=== PATIENT | female | born 1945 | race Two or more races ===

== ENCOUNTER 2019-03-02 09:21 | Inpatient (IN) | payer MEDICARE ==
[~2019-03-02] VITALS: Ht 167.6 cm; Wt 45.4 kg
--- NOTE | 2019-03-02 09:32 | NUR ---
patient BIB daughter c/o r hip pain s/p fall in the bathroom. Breathing evenly and unlabored. connected to the monitor and pulse ox. kept comfortable, will continue to monitor accordingly.
[2019-03-02 09:53] LABS: BASOPHILS # (AUTO) 0.2 /CMM (0.0-0.2); BASOPHILS % (AUTO) 2.2 % (0.0-2.0); EOSINOPHILS % (AUTO) 0.7 % (0.0-6.0); HEMATOCRIT 37 % (33-45); HEMOGLOBIN 12.3 g/dL (11.5-14.8); LYMPHOCYTES # (AUTO) 0.5 /CMM (0.8-4.8); LYMPHOCYTES % (AUTO) 5.5 % (20.0-44.0); MEAN CORPUSCULAR HGB CONC 34 g/dl (31.0-36.0); MEAN CORPUSCULAR VOLUME 91 fL (82-100); MONOCYTES # (AUTO) 0.4 /CMM (0.1-1.30); MONOCYTES % (AUTO) 4.1 % (2.0-12.0); NEUTROPHILS # (AUTO) 8.4 /CMM (1.8-8.9); NEUTROPHILS % (AUTO) 87.5 % (43.0-81.0); PLATELET COUNT (AUTO) 199 /CMM (150-450); RED BLOOD CELL COUNT(AUTO) 4.02 MIL/uL (4.0-5.2); WHITE BLOOD COUNT (AUTO) 9.6 K/uL (4.3-11.0)
--- NOTE | 2019-03-02 09:55 | NUR ---
urine collected and sent to lab.
[2019-03-02 09:58] LABS: APPEARANCE,URINE Cloudy (CLEAR); BILIRUBIN,URINE MODERATE (NEGATIVE); BLOOD, URINE Moderate Ery/uL (NEGATIVE); COLOR,URINE Yellow (YELLOW); KETONES,URINE 15 (NEGATIVE); LEUKOCYTE ESTERASE ,URINE Large (NEGATIVE); NITRITE, URINE Negative (NEGATIVE); PROTEIN,URINE 100 mg/dl (NEGATIVE); UGLUCOSE Negative (NEGATIVE); UROBILINOGEN,URINE 0.2 EU/dL (0.2)
[2019-03-02 09:59] LABS: CALCIUM, SERUM 9.6 mg/dL (8.5-10.1); CARBON DIOXIDE 20 mmol/L (21-32); CHLORIDE 103 mmol/L (98-107); GLUCOSE 108 mg/dL (74-106); POTASSIUM 4.1 mmol/L (3.5-5.1); SODIUM SERUM 142 mmol/L (136-145); UREA NITROGEN, BLOOD 50 mg/dL (7-18)
[2019-03-02 10:05] LABS: ALANINE AMINOTRANSFERASE 17 U/L (12-78); ALBUMIN 3.7 g/dL (3.4-5.0); ALKALINE PHOSPHATASE 62 U/L (46-116); ASPARTATE AMINOTRANSFERASE 16 U/L (15-37); BILIRUBIN,DIRECT 0.1 mg/dL (0.0-0.2); BILIRUBIN,TOTAL 0.6 mg/dL (0.2-1.0)
[2019-03-02 10:05] LABS: BACTERIA,URINE Few /HPF (None Seen); RBC,URINE 20-50 /HPF (0-2); SQUAMOUS EPITHELIAL CELL,UR Moderate /HPF (None Seen); WBC,URINE 20-25 /HPF (0-3)
--- NOTE | 2019-03-02 10:26 | NUR ---
CALLED NURSING SUP FOR BED
[2019-03-02] MEDS ORDERED: CEFTRIAXONE 1GM BAG (ER ONLY) 50 ML IV ONE (10:29)
[2019-03-02] MEDS ORDERED: CEFTRIAXONE 1GM BAG (ER ONLY) 1 GM/50 ML PIGGYBACK IV ONE (10:30)
[2019-03-02] MEDS ORDERED: IV NS 0.9% 500 ML BAG IV ONE (10:30)
--- NOTE | 2019-03-02 10:36 | NUR ---
CALLED [facility] [phone] ANSWER. COURY TEXTED
--- NOTE | 2019-03-02 10:41 | NUR ---
ROOM 103
[2019-03-02] MEDS ORDERED: HYDR-4075 PO (10:56)
[2019-03-02] MEDS ORDERED: AMLO10TA4 PO (10:56)
[2019-03-02] MEDS ORDERED: Z GUARD REMEDY 2 OZ OINT TP PRN (11:00)
[2019-03-02] MEDS ORDERED: ACETAMINOPHEN 325 MG TABLET PO PRN (11:00)
[2019-03-02] MEDS ORDERED: MAGNESIUM HYDROXIDE 30 ML UDC PO PRN (11:00)
[2019-03-02] MEDS ORDERED: ONDANSETRON HCL/PF 4 MG/2 ML VIAL IVP PRN (11:00)
--- NOTE | 2019-03-02 11:00 | NUR ---
RN NOTE ER TRANSFERD PATIENT AT 12PM. RN VERBALIZED FIRST ROUND OF ANTIBIOTICS WAS GIVEN IN ER. SUKUMAR NURSE DID NOT GIVE.
[2019-03-02] MEDS ORDERED: LOSA100T31 PO (11:02)
[2019-03-02] MEDS ORDERED: METO-356 PO (11:02)
--- NOTE | 2019-03-02 11:18 | NUR ---
ORTHO REPAGED, MIXED LIVESTOCK FARMER, PAGED TO CALL BACK.
--- NOTE | 2019-03-02 11:50 | NUR ---
wheeled patient via gurney going to room 103 in no apparent distress. Julee at bedside to assume care.
[2019-03-02 12:00] VITALS: BP 158/63
--- NOTE | 2019-03-02 12:00 | NUR ---
EDITOR SCHOOL PHOTOGRAPH ASSESSMENT PATIENT TRANSFERED FROM THE ER DUE TO FALL AT HOME. TRANSFERED FROM ER. PATIETN ALERT AND ORITNED X3. DAUGHTER AT BEDISDE. IV PATENT AND INTACT. XRAY DONE TO RT HIP, VITALS WNL , BED IN LOW POSITION, CALL LGIHT WITHIN REACH. PAIN MEDICATION ORDERED PER MD. CONTINUE TO MONITOR.
[2019-03-02] MEDS: HYDROCODONE/APAP 10/325MG 1 EA TABLET PO PRN (12:04)
[2019-03-02] MEDS: MORPHINE SULFATE INJ 2 MG/ML DISP.SYRIN IV PRN (12:26)
[2019-03-02 13:00] VITALS: BP 158/63
[2019-03-02] MEDS: IV NS 0.9% 1,000 ML IV PRN (15:08)
[2019-03-02 16:00] VITALS: BP 125/55
[2019-03-02] MEDS: hydrALAZINE HCL 10 MG TABLET PO SCH (17:38)
[2019-03-02] MEDS: LOSARTAN POTASSIUM 50 MG TABLET PO SCH (17:40)
--- NOTE | 2019-03-02 19:30 | NUR ---
RN NOTES, PATIENT IN BED AWAKE, ALERT AND ORIENTED X3, ABLE TO VERBALIZED NEEDS, ANXIOUS AND AFRAID OF SURGERY, DAUGHTER AT BEDSIDE, ASSURANCE PROVIDED, IV ACCESS IN LEFT AC PATENT AND INTACT, INFUSING IVF WELL AND PATIENT TOLERATED WELL, BED IN LOW POSITION, CALL LIGHT WITHIN REACH, DRY AND CLEAN, RIGHT LEG IMMOBILIZED, BILATERAL 1/2 S/R OF BED UP, WILL CONTINUE TO MONITOR CLOSELY,
[2019-03-02 20:00] VITALS: BP 127/65
[2019-03-03] VITALS (13 sets, daily range): BP systolic 97–145; BP diastolic 52–68
[2019-03-03] MEDS: MORPHINE SULFATE INJ 2 MG/ML DISP.SYRIN IV PRN ×4 (02:28→23:04)
--- NOTE | 2019-03-03 04:33 | NUR ---
RN NOTES, ENDORSED PATIENT TO SIRISHA VILLALBA FOR CONTINUATION OF CARE, PATIENT IN BED AWAKE A/O, ANXIOUS AND BEING AWAKE ALL NIGHT, MORPHINE ADMINISTERED EARLIER FOR PAIN, BUT REFUSED MEDICATION FOR ANXIETY OR SLEEP, EDUCATION PROVIDED REGARDING SURGERY AT THE BEGINNING OF THE SHIFT AND INFORMED THAT SHE NEED TO BE NPO, PATIENT AWARE OF SURGERY, NPO SINCE MIDNIGHT, VERBALIZED UNDERSTANDING, AND CONSENT SIGNED.
--- NOTE | 2019-03-03 04:34 | NUR ---
MS RN NOTE PATIENT RECEIVED IN BED A/O X 3 ABLE TO VERBALIZE NEEDS. PATIENT ANXIOUS AND HASNT SLEPT ALL NIGHT. PATIENT REFUSES ANY MEDICATION TO AID IN REST AND ANXIETY. REASSURANCE PROVIDED AND SUPPORT GIVEN. PATIENT HAS LAC PATENT INTACT NO S/S OF INFILTRATION AND INFECTION. SAFETY PRECAUTIONS IN PLACE BED IN LOWEST LOCKED POSITION. PATIENT DENIES ANY PAIN AT THIS TIME. RIGHT LEG IMOBILIZED RN WILL CONTINUE TO MONITOR,.
[2019-03-03 06:00] LABS: BASOPHILS % (AUTO) 0.8 % (0.0-2.0); EOSINOPHILS % (AUTO) 1.7 % (0.0-6.0); HEMATOCRIT 28 % (33-45); HEMOGLOBIN 9.7 g/dL (11.5-14.8); LYMPHOCYTES % (AUTO) 18.7 % (20.0-44.0); MEAN CORPUSCULAR HGB CONC 34 g/dl (31.0-36.0); MEAN CORPUSCULAR VOLUME 88 fL (82-100); MONOCYTES # (AUTO) 0.5 /CMM (0.1-1.30); MONOCYTES % (AUTO) 9.8 % (2.0-12.0); NEUTROPHILS # (AUTO) 3.6 /CMM (1.8-8.9); PLATELET COUNT (AUTO) 151 /CMM (150-450); RED BLOOD CELL COUNT(AUTO) 3.17 MIL/uL (4.0-5.2); WHITE BLOOD COUNT (AUTO) 5.3 K/uL (4.3-11.0)
[2019-03-03 06:12] LABS: CALCIUM, SERUM 8.3 mg/dL (8.5-10.1); CARBON DIOXIDE 21 mmol/L (21-32); CHLORIDE 109 mmol/L (98-107); CREATININE 1.5 mg/dL (0.6-1.3); GLUCOSE 97 mg/dL (74-106); MAGNESIUM 1.8 mg/dL (1.8-2.4); PHOSPHORUS 3.4 mg/dL (2.5-4.9); SODIUM SERUM 141 mmol/L (136-145); UREA NITROGEN, BLOOD 47 mg/dL (7-18)
[2019-03-03 06:18] LABS: CHOLESTEROL 155 mg/dL (<200); HDL CHOLESTEROL 67 mg/dL (40-60); LDL 72 mg/dL (0-99); THYROID STIMULATING HORMONE 1.047 uIU/mL (0.358-3.74); TRIGLYCERIDES 51 mg/dL (30-150)
--- NOTE | 2019-03-03 06:44 | NUR ---
MS RN NOTE NO ACUTE CHANGES THROUGHOUT THE NIGHT. ALL CARE RENDERED. NO S/S OF DISTRESS. WILL ENDORSE POC TO AM SHIFT FOR ELENO.
[2019-03-03] MEDS: PANTOPRAZOLE 40 MG TABLET.DR PO SCH (07:30)
--- NOTE | 2019-03-03 07:30 | NUR ---
MS RN AM NOTES PATIENT IN BED A/O X 3 ABLE TO VERBALIZE NEEDS. ANXIOUS AND HASNT SLEPT ALL NIGHT PER MEMBERSHIP ADVISOR AND ALSO REFUSES MEDICATIONS FOR REST AND ANXIETY. REASSURANCE PROVIDED AND SUPPORT GIVEN. ON RA, NOT [place] DISTRESS, PAIN ON RIGHT HIP ON MOVEMENT OR CHANGE IN POSITION, LAC IV ACCESS WITH NS AT 100 ML/HR INFUSING WELL, SITE CLEAR. NPO FOR SCHEDULED HIP SURGERY BBY DR. MICHAEL, CONSENT AND CHECKLIST DONE. SAFETY PRECAUTIONS IN PLACE BED IN LOWEST LOCKED POSITION. CALL LIGHT WITHIN REACH. WILL CONTINUE TO MONITOR,.
[2019-03-03] MEDS ORDERED: BUPIVACAINE 0.5 % PF 150 MG/30 ML VIAL ONE ×2 (08:24→08:57)
[2019-03-03] MEDS ORDERED: BACITRACIN 50000 UNITS/VIAL ONE (08:24)
[2019-03-03] MEDS ORDERED: ANESTHESIA TRAY IN PYXIS 1 EA TRAY MC ONE (08:24)
[2019-03-03] MEDS: AMLODIPINE BESYLATE 10 MG TABLET PO SCH (08:28)
[2019-03-03] MEDS: LOSARTAN POTASSIUM 50 MG TABLET PO SCH (08:28)
[2019-03-03] MEDS: hydrALAZINE HCL 10 MG TABLET PO SCH ×2 (08:28→17:00)
[2019-03-03] MEDS: METOPROLOL SUCCINATE 25 MG TAB.SR.24H PO SCH (08:29)
[2019-03-03] MEDS: IV NS 0.9% 1,000 ML IV PRN (08:35)
--- NOTE | 2019-03-03 08:35 | NUR ---
MS RN NOTES PT PICKED UP FOR SURGERY
--- NOTE | 2019-03-03 08:50 | NUR ---
WOUND CARE CONSULT: PT OFF UNIT IN SURGERY AT THIS TIME. WILL SEE PT NEEDED.
[2019-03-03] MEDS ORDERED: FENTANYL PF 100MCG/2ML AMPUL ONE (08:56)
[2019-03-03] MEDS ORDERED: MIDAZOLAM HCL 2 MG/2ML VIAL ONE (08:57)
[2019-03-03] MEDS: CEFTRIAXONE 1 G in IV D5W 50 ML IV SCH (11:00)
[2019-03-03] MEDS ORDERED: BUPIVACAINE 0.25% 75 MG/30 ML VIAL ONE (11:21)
[2019-03-03] MEDS ORDERED: TRANEXAMIC ACID 3,000 MG in SODIUM CHLORIDE IRRIG SOLUTION 70 ML IR ONE (11:30)
[2019-03-03] MEDS ORDERED: ONDANSETRON HCL/PF 4 MG/2 ML VIAL ONE (11:45)
[2019-03-03] MEDS ORDERED: METOCLOPRAMIDE HCL 10 MG/2 ML VIAL ONE (12:02)
--- NOTE | 2019-03-03 12:28 | NUR ---
MS RN NOTES PT BACK FROM SURGERY. S/P RIGHT HIP HEMIARTHROPLASTY, DRESSING IN PLACE BY DR. MICHAEL, PT ALERT,C/O NAUSEA, DENIES PAIN, NOT IN ANY DISTRESS, IVF ONGOING, ADDUCTOR PILLOW IN PLACE. ALL POST OP ORDERS CARRIED OUT. WILL MONITOR. Addendum: 03/03/19 at 1442 by DIANA SHANNON RN ADDENDUM: MCKEON CATHETER IN PLACE DRAINING YELLOW CLEAR URINE. ADEQUATE AMOUNT.
[2019-03-03] MEDS: HYDROCODONE/APAP 10/325MG 1 EA TABLET PO PRN ×2 (15:56→20:10)
--- NOTE | 2019-03-03 18:52 | NUR ---
MS RN CLOSING NOTES PATIENT RESTING IN BED A/O X 3 ABLE TO VERBALIZE NEEDS. A BIT ANXIOUS, REASSURANCE PROVIDED AND SUPPORT GIVEN. ON RA, NOT IN ANY DISTRESS, S/P RT HIP ARTHROPLASTY, TOLERABLE PAIN, ON MOVEMENT OR CHANGE IN POSITION, LAC IV ACCESS WITH LR AT 75 ML/HR INFUSING WELL, SITE CLEAR. REGULAR DIET. SAFETY PRECAUTIONS IN PLACE BED IN LOWEST LOCKED POSITION. CALL LIGHT WITHIN REACH. ALL NEEDS MET. NO OTHER SIGNIFICANT CHANGE IN CONDITION. WILL ENDORSE TO NEXT SHIFT FOR ELENO.
--- NOTE | 2019-03-03 19:27 | NUR ---
RN MS OPENING NOTES RECEIVED PT IN BED, AWAKE ALERT ORIENTED X4, BREATHING EVEN AND UNLABORED ON ROOM AIR, INCENTIVE SPIROMETER AT BED SIDE. REPORTS R HIP PAIN 04/15, WILL FOLLOW UP WITH ANALGESIA. IV ACCESS ON THE L AC 20G WITH NS @100ML/HR, F/C IN PLACE AND DRAINING. BED IN LOWEST LOCKED POSITION, CALL LIGHT WITHIN REACH AT ALL TIMES, WILL CONTINUE TO MONITOR FREQUENTLY
[2019-03-04] MEDS: HYDROCODONE/APAP 10/325MG 1 EA TABLET PO PRN ×2 (04:16→08:45)
[2019-03-04] MEDS: IV LR 1000 ML 1,000 ML IV PRN ×2 (04:22→22:41)
[2019-03-04 05:00] VITALS: BP 141/55
--- NOTE | 2019-03-04 06:01 | NUR ---
RN MS CLOSING NOTES PT REMAINS IN BED, AWAKE ALERT ORIENTED X4, BREATHING EVEN AND UNLABORED ON ROOM AIR, INCENTIVE SPIROMETER AT BED SIDE. NO PAIN OR DISCOMFORT AT THIS TIME. IV ACCESS ON THE L AC 20G WITH LR 75ML/HR, F/C IN PLACE AND DRAINING OUTPUT OF 350ML NO BM.. BED IN LOWEST LOCKED POSITION, CALL LIGHT WITHIN REACH AT ALL TIMES, WILL ENDORSE TO DAY NURSE FOR ELENO.
[2019-03-04] MEDS: ENOXAPARIN SODIUM 30 MG/0.3 ML DISP.SYRIN SQ SCH (06:21)
[2019-03-04] MEDS: PANTOPRAZOLE 40 MG TABLET.DR PO SCH ×2 (07:30→08:17)
--- NOTE | 2019-03-04 07:32 | NUR ---
MS RN CLOSING NOTES RECEIVED PATIENT RESTING IN BED A/O X 3 ABLE TO VERBALIZE NEEDS. ON RA, NO SOB OR ACUTE DISTRESS NOTED. S/P RT HIP ARTHROPLASTY. LAC IV ACCESS INTACT AND PATENT WITH LR AT 75 ML/HR INFUSING WELL. REGULAR DIET. SAFETY PRECAUTIONS IN PLACE BED IN LOWEST LOCKED POSITION. CALL LIGHT WITHIN REACH. WILL CONTINUE TO MONITOR.
[2019-03-04 08:00] VITALS: BP 130/68
[2019-03-04] MEDS: LOSARTAN POTASSIUM 50 MG TABLET PO SCH ×2 (08:17→09:00)
[2019-03-04] MEDS: hydrALAZINE HCL 10 MG TABLET PO SCH ×3 (08:18→17:00)
[2019-03-04] MEDS: METOPROLOL SUCCINATE 25 MG TAB.SR.24H PO SCH ×2 (08:19→09:00)
[2019-03-04] MEDS: AMLODIPINE BESYLATE 10 MG TABLET PO SCH ×2 (08:19→09:00)
[2019-03-04 08:27] LABS: CALCIUM, SERUM 8.3 mg/dL (8.5-10.1); CARBON DIOXIDE 23 mmol/L (21-32); CHLORIDE 105 mmol/L (98-107); CREATININE 1.5 mg/dL (0.6-1.3); GLUCOSE 118 mg/dL (74-106); POTASSIUM 4.2 mmol/L (3.5-5.1); SODIUM SERUM 137 mmol/L (136-145); UREA NITROGEN, BLOOD 29 mg/dL (7-18)
--- NOTE | 2019-03-04 08:46 | NUR ---
WOUND CARE CONSULT: PT PRESENTS WITH RT HIP SURGICAL DRESSING WHICH IS DRY AND INTACT. SKIN IS INTACT. PT NOTED TO HAVE MCKEON CATH. RECOMMENDATIONS MADE FOR SKIN PROTECTION. DISCUSSED WITH NURSING STAFF. WILL SEE PRN. PT ABLE TO ASSIST WITH TURNING AND REPOSITIONING IN BED. MD IN AGREEMENT WITH PLAN OF CARE. CURRENT MARIEL SCORE IS 15.
[2019-03-04 09:04] LABS: BASOPHILS # (AUTO) 0.1 /CMM (0.0-0.2); BASOPHILS % (AUTO) 0.5 % (0.0-2.0); EOSINOPHILS % (AUTO) 0.3 % (0.0-6.0); HEMATOCRIT 26 % (33-45); HEMOGLOBIN 8.7 g/dL (11.5-14.8); LYMPHOCYTES # (AUTO) 0.7 /CMM (0.8-4.8); LYMPHOCYTES % (AUTO) 9.7 % (20.0-44.0); MEAN CORPUSCULAR HGB CONC 34 g/dl (31.0-36.0); MEAN CORPUSCULAR VOLUME 89 fL (82-100); MONOCYTES # (AUTO) 0.7 /CMM (0.1-1.30); MONOCYTES % (AUTO) 9.4 % (2.0-12.0); NEUTROPHILS # (AUTO) 5.8 /CMM (1.8-8.9); NEUTROPHILS % (AUTO) 80.1 % (43.0-81.0); PLATELET COUNT (AUTO) 148 /CMM (150-450); WHITE BLOOD COUNT (AUTO) 7.2 K/uL (4.3-11.0)
[2019-03-04] MEDS: CEFTRIAXONE 1 G in IV D5W 50 ML IV SCH (11:02)
[2019-03-04 12:00] VITALS: BP 92/64
[2019-03-04] MEDS: HYDROCODONE/APAP 5/325MG 1 EACH TABLET PO PRN ×2 (14:16→14:17)
[2019-03-04 16:00] VITALS: BP 92/64
--- NOTE | 2019-03-04 16:23 | NUR ---
MS RN NOTE PATIENT MCKEON CATHETER REMOVED. 350CC CLEAR YELLOW URING PRESENT IN BAG. REMOVED W/O INCIDENT.
--- NOTE | 2019-03-04 19:10 | NUR ---
MS RN NOTES RECEIVED PT IN BED AWAKE AND ABLE TO MAKE NEEDS KNOWN. PT A/O X4. RESPIRATIONS EVEN AND UNLABORED WITH NO S/S OF ACUTE DISTRESS OR SOB NOTED. PT ON RA TOLERATING WELL. IV ACCESS ON THE LAC #20G WITH LR @75ML/HR. SAFETY MEASURES IN PLACE WITH BED IN LOWEST LOCKED POSITION WITH SIDE RAILS UP X2. CALL LIGHT WITHIN REACH. WILL CONTINUE TO MONITOR.
--- NOTE | 2019-03-04 20:02 | NUR ---
MS RN CLOSING NOTES PATIENT RESTING IN BED A/O X 3 ABLE TO VERBALIZE NEEDS. ON RA, NO SOB OR ACUTE DISTRESS NOTED. S/P RT HIP ARTHROPLASTY. LAC IV ACCESS INTACT AND PATENT WITH LR AT 75 ML/HR INFUSING WELL. REGULAR DIET. SAFETY PRECAUTIONS IN PLACE BED IN LOWEST LOCKED POSITION. CALL LIGHT WITHIN REACH. CARE ENDORSED TO ROLL CLEANER RN..
[2019-03-04] MEDS: MAG HYDROX/AL HYDROX/SIMETH 30 ML UDC PO PRN (20:51)
[2019-03-04 21:00] VITALS: BP 100/61
[2019-03-05] MEDS: MAG HYDROX/AL HYDROX/SIMETH 30 ML UDC PO PRN (03:08)
[2019-03-05 05:00] VITALS: BP 111/57
--- NOTE | 2019-03-05 07:21 | NUR ---
MS RN NOTES PT IN BED AWAKE AND ABLE TO MAKE NEEDS KNOWN. PT A/O X4. RESPIRATIONS EVEN AND UNLABORED WITH NO S/S OF ACUTE DISTRESS OR SOB NOTED THROUGHOUT SHIFT. PT ON RA TOLERATING WELL. IV ACCESS ON THE LAC #20G WITH LR @75ML/HR WITH NO S/S OF INFILTRATION OR REDNESS NOTED THROUGHOUT SHIFT. SAFETY MEASURES IN PLACE WITH BED IN LOWEST LOCKED POSITION WITH SIDE RAILS UP X2. CALL LIGHT WITHIN REACH. WILL ENDORSE TO ONCOMING NURSE FOR ELENO.
[2019-03-05] MEDS: PANTOPRAZOLE 40 MG TABLET.DR PO SCH ×2 (07:30→07:44)
[2019-03-05 08:00] VITALS: BP 124/68
[2019-03-05] MEDS: hydrALAZINE HCL 10 MG TABLET PO SCH (08:05)
[2019-03-05] MEDS: LOSARTAN POTASSIUM 50 MG TABLET PO SCH (08:06)
[2019-03-05] MEDS: AMLODIPINE BESYLATE 10 MG TABLET PO SCH (08:06)
[2019-03-05] MEDS: METOPROLOL SUCCINATE 25 MG TAB.SR.24H PO SCH (08:07)
--- NOTE | 2019-03-05 08:07 | NUR ---
MS RN OPENING NOTES PATIENT RECEIVED RESTING IN BED A/O X 3 ABLE TO VERBALIZE NEEDS. ON RA, NO SOB OR ACUTE DISTRESS NOTED. S/P RT HIP ARTHROPLASTY. ORTHOPEDIST BEDSIDE TODAY.. SURGICAL SITE PROGRESSING EXPECTED. LAC IV ACCESS INTACT AND PATENT. IV LR HELD OVERNIGHT D/T PATIENT BENDING ARM DURING SLEEP. SAFETY PRECAUTIONS IN PLACE BED IN LOWEST LOCKED POSITION. CALL LIGHT WITHIN REACH. WILL CONTINUE TO MONITOR.
--- NOTE | 2019-03-05 08:10 | NUR ---
MS GRIMM NOTE PATIENT REFUSED 0900 BP MEDICATIONS. BP 124/68, HR 93. Addendum: 03/05/19 at 0811 by FRANK SMITH RN WILL NOTIFY MD DURING ROUNDS.
[2019-03-05] MEDS: ENOXAPARIN SODIUM 30 MG/0.3 ML DISP.SYRIN SQ SCH (08:59)
[2019-03-05] MEDS ORDERED: CEPH-569 PO (10:09)
[2019-03-05] MEDS ORDERED: ENOX30DI SQ (10:10)
[2019-03-05] MEDS ORDERED: HYDR-3972 PO (10:10)
[2019-03-05] MEDS: CEFTRIAXONE 1 G in IV D5W 50 ML IV SCH (11:40)
[2019-03-05 16:00] VITALS: BP 130/72
--- NOTE | 2019-03-05 17:08 | NUR ---
MS NET SQL DEVELOPER NOTE PATIENT DISCHARGED PER MD ORDER TO [facility] VIA EMT GURNEY TRANSPORT. PATIENT A/O X 4, NO SOB OR ACUTE DISTRESS NOTED, V/S WNL. REPORT GIVEN BY MANOJ GRIMM TO ALEK GRIMM AT SNF. PATIENT DAUGHTER NOTIFIED AND CONFIRMED SHE IS AWARE OF PATIENT DESTINATION. PATIENT EDUCATION GIVEN, DISCHARGE PAPERWORK SENT TO SNF WITH EMT'S. ALL LINES/IV REMOVED., NO MCKEON OR ANY OTHER DEVICES ON OR WITH PATIENT. ALL BELONGINGS ACCOUNTED FOR. PATIENT DISCHARGE COMPLETED WITHOUT INCIDENT.
== END 2019-03-05 17:00 | DRG 469 ==
LOC: ER 09:21 → MEDSG1 11:35
PROVIDERS: ADMIT Registered Nurse; ATTEND Nurse Practitioner Acute Care
PROC: 0SR90JZ Replacement of Right Hip Joint with Synthetic Substitute, Open Approach (ICD-10-PCS; principal; 2019-03-03)
DX: S72.011A Unspecified intracapsular fracture of right femur, initial encounter for closed fracture (principal); N17.0 Acute kidney failure with tubular necrosis; N39.0 Urinary tract infection, site not specified; N18.9 Chronic kidney disease, unspecified; I12.9 Hypertensive chronic kidney disease with stage 1 through stage 4 chronic kidney disease, or unspecified chronic kidney disease; W18.30XA Fall on same level, unspecified, initial encounter; Y93.9 Activity, unspecified; Y92.009 Unspecified place in unspecified non-institutional (private) residence as the place of occurrence of the external cause; E86.9 Volume depletion, unspecified; F41.9 Anxiety disorder, unspecified; Z73.6 Limitation of activities due to disability; Z95.0 Presence of cardiac pacemaker; D64.9 Anemia, unspecified; B96.20 Unspecified Escherichia coli [E. coli] as the cause of diseases classified elsewhere; B95.1 Streptococcus, group B, as the cause of diseases classified elsewhere
CPT/HCPCS: 36415; 71045-TC; 72170-TC; 73502; 73552; 73700-TC; 80048-TC; 80061-TC; 80076-TC; 81000-TC; 83605-TC; 83735-TC; 84100-TC; 84443-TC; 84484-TC; 85025-TC; 85610-TC; 85730-TC; 86850-TC; 87040-TC; 87081-TC; 87086-TC; 87186-TC; 88305-TC; 93307-TC; 97110-TC; 97112-TC; 97116-TC; 97530-TC; A4217; A6209; A6402; G0378; J0330; J0690; J0696; J1650; J2001; J2250; J2270; J2370; J2405; J2704; J2765; J3010; J3490; J7030; J7060; J7120

== ENCOUNTER 2019-04-16 08:45 | Outpatient (CLI) | payer MEDICARE ==
[~2019-04-16 08:45] MED LIST: AMLO10TA4 PO; CEPH-569 PO; ENOX30DI SQ; HYDR-3972 PO; HYDR-4075 PO; LOSA100T31 PO; METO-356 PO
== END 2019-04-16 23:59 | disposition home or self-care (01) ==
LOC: CT 08:45
PROVIDERS: ATTEND Specialist
DX: M85.88 Other specified disorders of bone density and structure, other site (principal); I70.90 Unspecified atherosclerosis; I10 Essential (primary) hypertension; Z95.0 Presence of cardiac pacemaker; Z96.641 Presence of right artificial hip joint
CPT/HCPCS: 73700-TC

== ENCOUNTER 2022-12-01 19:09 | Inpatient (IN) | payer MEDICARE ==
[~2022-12-01] VITALS: Ht 152.4 cm; Wt 48.5 kg
[~2022-12-01 19:09] MED LIST changes: -METO-356 PO; +METO25TA4 PO
--- NOTE | 2022-12-01 19:20 | NUR ---
[id number], L HIP PAIN WORST WHEN BEARING WEIGHT S/P GLF LAST NIGHT WHILE WALKING OUTSIDE HER HOUSE. DENIES KO. LOW GRADE FEVER NOTED DRAFTSPERSON. PLACED IN BED, AAOX4, BREATHING EVEN AND UNLABORED SATURATING AT 97%RA, PAIN FREE AT MOMMENT.
--- NOTE | 2022-12-01 20:34 | NUR ---
SPOUT POSITIONER AT PT'S BEDSIDE
--- NOTE | 2022-12-01 21:03 | NUR ---
SWAB FOR COVID19 SENT TO LAB
--- NOTE | 2022-12-01 22:10 | NUR ---
BLOOD DRAWN SENT TO LAB
[2022-12-01 22:16] LABS: BASOPHILS % (AUTO) 0.5 % (0.0-2.0); EOSINOPHILS % (AUTO) 0.3 % (0.0-6.0); HEMATOCRIT 33 % (33-45); LYMPHOCYTES # (AUTO) 0.9 K/uL (0.8-4.8); LYMPHOCYTES % (AUTO) 11.5 % (20.0-44.0); MEAN CORPUSCULAR HGB CONC 33 g/dl (31.0-36.0); MEAN CORPUSCULAR VOLUME 89 fL (82-100); MONOCYTES # (AUTO) 0.6 K/uL (0.1-1.30); MONOCYTES % (AUTO) 7.6 % (2.0-12.0); NEUTROPHILS # (AUTO) 6.4 K/uL (1.8-8.9); NEUTROPHILS % (AUTO) 80.1 % (43.0-81.0); PLATELET COUNT (AUTO) 165 K/uL (150-450); RED BLOOD CELL COUNT(AUTO) 3.73 MIL/uL (4.0-5.2); WHITE BLOOD COUNT (AUTO) 7.9 K/uL (4.3-11.0)
[2022-12-01 22:29] LABS: ALANINE AMINOTRANSFERASE 22 U/L (12-78); ALBUMIN 3.7 g/dL (3.4-5.0); ALKALINE PHOSPHATASE 75 U/L (46-116); ASPARTATE AMINOTRANSFERASE 15 U/L (15-37); BILIRUBIN,DIRECT 0.1 mg/dL (0.0-0.2); BILIRUBIN,TOTAL 0.4 mg/dL (0.2-1.0); CARBON DIOXIDE 26 mmol/L (21-32); CHLORIDE 106 mmol/L (98-107); CREATININE 1.2 mg/dL (0.6-1.3); GLUCOSE 104 mg/dL (74-106); POTASSIUM 3.4 mmol/L (3.5-5.1); SODIUM SERUM 140 mmol/L (136-145); TOTAL PROTEIN, SERUM 7.4 g/dL (6.4-8.2); UREA NITROGEN, BLOOD 27 mg/dL (7-18)
[2022-12-01 22:34] LABS: CALCIUM, SERUM 8.9 mg/dL (8.5-10.1)
[2022-12-01] MEDS ORDERED: MAGNESIUM HYDROXIDE 30 ML UDC PO PRN (23:00)
[2022-12-01] MEDS ORDERED: MAG HYDROX/AL HYDROX/SIMETH 30 ML UDC PO PRN (23:00)
[2022-12-01] MEDS ORDERED: ACETAMINOPHEN 325 MG TABLET PO PRN (23:00)
[2022-12-01] MEDS ORDERED: MORPHINE SULFATE INJ 2 MG/ML DISP.SYRIN IV PRN (23:00)
[2022-12-01] MEDS ORDERED: Z GUARD REMEDY 4 OZ OINT TP PRN (23:00)
[2022-12-01] MEDS ORDERED: HYDROCODONE/APAP 5/325MG TABLET PO PRN (23:00)
--- NOTE | 2022-12-01 23:45 | NUR ---
DR HALL AT BEDSIDE
--- NOTE | 2022-12-01 23:54 | NUR ---
REPORT GIVEN TO FEDERICO GRIMM ROOM 328 FOR ELENO
--- NOTE | 2022-12-02 00:15 | NUR ---
MS CHILD DEVELOPMENT CONSULTANT NOTES REPORT RECEIVED FROM ER NURSE NATALY. PATIENT WAS TRANSFERRED FROM ER VIA GURNEY, WITH NO SIGNS OF DISTRESS. ORIENTED PATIENT TO ROOM SET UP AND EDUCATED PATIENT ON THE USE OF CALL LIGHT. VS TAKEN, STABLE AND RECORDED. SKIN ASSESSMENT DONE AND PICTURE TAKEN. ALL BELONGING CHECKED AND BELONGING LIST SIGNED. PATIENT AWAKE, ALERT AND ORIENTED. A/O X 4. ON ROOM AIR, BREATHING EVEN AND UNLABORED, NO DISTRESS OR SHORTNESS OF BREATH NOTED. IV ACCESS LFA #20G, INTACT, PATENT AND FLUSHING WELL. FALL AND SAFETY MEASURES IN PLACE. BED ALARM ON. BED IN LOWEST AND LOCK POSITION. CALL LIGHT AND TRAY WITHIN EASY REACH. SIDE RAILS UP X 2. WILL CONTINUE TO MONITOR THE PATIENT.
--- NOTE | 2022-12-02 00:23 | NUR ---
PT TRANSFERRED TO [facility] VIA BLS PROTOCOL, VS WNL.
[2022-12-02] MEDS ORDERED: CEFTRIAXONE 1 G in IV D5W 50 ML IV SCH (00:30)
[2022-12-02] MEDS ORDERED: CEFTRIAXONE 1 G VIAL ONE (01:42)
[2022-12-02] MEDS: IV D5/0.45 NACL 1,000 ML IV PRN ×2 (01:44→23:44)
--- NOTE | 2022-12-02 04:30 | NUR ---
RN NOTES- MCKEON CATH BLADDER SCAN DONE WITH THE PATIENT DUE TO DYSURIA. INSERTED MCKEON CATH AND DRAINED CLOUDY KARLA COLORED URINE. WILL CONTINUE TO MONITOR PATIENT.
[2022-12-02 05:21] VITALS: BP 120/90
[2022-12-02 06:20] LABS: BASOPHILS % (AUTO) 0.4 % (0.0-2.0); EOSINOPHILS % (AUTO) 1.2 % (0.0-6.0); HEMATOCRIT 31 % (33-45); HEMOGLOBIN 10.3 g/dL (11.5-14.8); LYMPHOCYTES % (AUTO) 13.3 % (20.0-44.0); MEAN CORPUSCULAR HGB CONC 33 g/dl (31.0-36.0); MEAN CORPUSCULAR VOLUME 89 fL (82-100); MONOCYTES # (AUTO) 0.6 K/uL (0.1-1.30); MONOCYTES % (AUTO) 8.1 % (2.0-12.0); NEUTROPHILS # (AUTO) 5.5 K/uL (1.8-8.9); PLATELET COUNT (AUTO) 144 K/uL (150-450); RED BLOOD CELL COUNT(AUTO) 3.48 MIL/uL (4.0-5.2); WHITE BLOOD COUNT (AUTO) 7.2 K/uL (4.3-11.0)
[2022-12-02 07:00] VITALS: BP 158/69
[2022-12-02 07:08] LABS: CALCIUM, SERUM 8.6 mg/dL (8.5-10.1); CREATININE 1.2 mg/dL (0.6-1.3); MAGNESIUM 2.2 mg/dL (1.8-2.4); PHOSPHORUS 2.8 mg/dL (2.5-4.9); POTASSIUM 3.7 mmol/L (3.5-5.1)
[2022-12-02 07:30] LABS: THYROID STIMULATING HORMONE 1.134 uIU/mL (0.358-3.74)
--- NOTE | 2022-12-02 07:30 | NUR ---
PT RECEIVED RESTING COMFORTABLY IN BED WITH EYES CLOSED. NO S/S OR C/O PAIN OR DISTRESS NOTED. SIDE RAILS UP X2, CALL LIGHT LEFT WITHIN REACH. WILL CONTINUE PLAN OF CARE.
--- NOTE | 2022-12-02 07:40 | NUR ---
MS RN CLOSING NOTES PATIENT IN BED AWAKE, ALERT AND ORIENTED. A/O X 4. ON ROOM AIR, BREATHING EVEN AND UNLABORED, NO DISTRESS OR SHORTNESS OF BREATH NOTED. IV ACCESS LFA #20G, RUNNING D5 1/2 NS @50 ML/HR, INFUSING WELL. PATIENT ON NPO. ON MCKEON CATH DRAINED 600 CC OF KARLA COLORED URINE. FALL AND SAFETY MEASURES MAINTAINED. BED ALARM ON. BED IN LOWEST AND LOCK POSITION. CALL LIGHT AND TRAY WITHIN EASY REACH. SIDE RAILS UP X 2. WILL ENDORSE TO THE NEXT SHIFT.
[2022-12-02] MEDS: LOSARTAN POTASSIUM 50 MG TABLET PO SCH ×2 (09:00→09:06)
[2022-12-02] MEDS: PANTOPRAZOLE 40 MG VIAL IV SCH ×2 (09:00→09:05)
[2022-12-02] MEDS: hydrALAZINE HCL 10 MG TABLET PO SCH ×3 (09:00→16:30)
[2022-12-02] MEDS: METOPROLOL SUCCINATE 25 MG TAB.SR.24H PO SCH ×2 (09:00→09:07)
[2022-12-02] MEDS: AMLODIPINE BESYLATE 10 MG TABLET PO SCH ×2 (09:00→09:06)
[2022-12-02 16:00] VITALS: BP 149/72
[2022-12-02 16:05] LABS: BILIRUBIN,URINE NEGATIVE (NEGATIVE); COLOR,URINE YELLOW (YELLOW); LEUKOCYTE ESTERASE ,URINE NEGATIVE (NEGATIVE); NITRITE, URINE NEGATIVE (NEGATIVE); PH,URINE 5.5 (5.0-8.0); PROTEIN,URINE 1+ mg/dl (NEGATIVE); UGLUCOSE NEGATIVE (NEGATIVE); UROBILINOGEN,URINE 0.2 EU/dL (0.2)
[2022-12-02 16:25] LABS: RBC,URINE 51-80 /HPF (0-2)
[2022-12-02 16:26] LABS: BACTERIA,URINE RARE /HPF (None Seen); HYALINE CASTS, URINE Few /LPF (None Seen); MUCUS,URINE Many /LPF (None Seen); SQUAMOUS EPITHELIAL CELL,UR 0-2 /HPF (None Seen); WBC,URINE 0-2 /HPF (0-3)
--- NOTE | 2022-12-02 19:27 | NUR ---
CHANGE OF SHIFT REPORT PATIENT RESTING COMFORTABLY IN BED. NO S/S OR C/O PAIN OR DISTRESS NOTED. SIDE RAILS UP X2, CALL LIGHT LEFT WITHIN REACH. PT KEPT CLEAN, DRY, AND COMFORTABLE. NO SIGNIFICANT CHANGES SINCE PREVIOUS SHIFT. WILL GIVE REPORT TO JAGDEEP GRIMM.
--- NOTE | 2022-12-02 19:45 | NUR ---
RN OPENING NOTES; RECEIVED PT AWAKED AOX4,ABLE TO MAKE NEEDS KNOWN,NO SIGN SOB/DISTRESS NOTED,BREATHING EVEN AND UNLABORED,NO COMPLAIN OF PAIN/DISCOMFORT AT THIS TIME,IV ACCESS LFA 20G PATENT AND INTACT,SAFETY MEASURE IN PLACE,CALL LIGHT WITHIN REACH,WILL CONTINUE TO MONITOR.
[2022-12-02 21:27] VITALS: BP 148/77
[2022-12-03] MEDS: CEFTRIAXONE 1 G in IV D5W 50 ML IV SCH (00:03)
[2022-12-03] MEDS ORDERED: hydrALAZINE HCL IV 20 MG VIAL IV PRN (00:30)
[2022-12-03 06:29] LABS: BASOPHILS % (AUTO) 0.3 % (0.0-2.0); EOSINOPHILS % (AUTO) 0.8 % (0.0-6.0); HEMATOCRIT 29 % (33-45); HEMOGLOBIN 9.6 g/dL (11.5-14.8); LYMPHOCYTES # (AUTO) 1.2 K/uL (0.8-4.8); LYMPHOCYTES % (AUTO) 18.8 % (20.0-44.0); MEAN CORPUSCULAR HGB CONC 33 g/dl (31.0-36.0); MEAN CORPUSCULAR VOLUME 89 fL (82-100); MONOCYTES # (AUTO) 0.6 K/uL (0.1-1.30); MONOCYTES % (AUTO) 9.9 % (2.0-12.0); NEUTROPHILS # (AUTO) 4.6 K/uL (1.8-8.9); NEUTROPHILS % (AUTO) 70.2 % (43.0-81.0); PLATELET COUNT (AUTO) 136 K/uL (150-450); RED BLOOD CELL COUNT(AUTO) 3.22 MIL/uL (4.0-5.2); WHITE BLOOD COUNT (AUTO) 6.5 K/uL (4.3-11.0)
--- NOTE | 2022-12-03 06:29 | NUR ---
RN CLOSING NOTES; PT IN BED AWAKED AOX4,ABLE TO MAKE NEEDS KNOWN,THADDEUS WELL ON RM AIR,NO SIGN SOB/DISTRESS NOTED,BREATHING EVEN AND UNLABORED,NO COMPLAIN OF PAIN/DISCOMFORT DURING SHIFT,DUE MEDS GIVEN ORDER,ALL NEEDS ATTENDE ,IV ACCESS LFA 20G WITH D5 1/2NS 50ML/HR INFUSING,PT VERY ANXIOUS ABOUT THE SURGERY TODAY,I ASKED HER IF SHE WANT TO TAKE ANXIETY MEDS OR SLEEPING PILL BUT SHE NO,I DON'T TAKE THOSE MEDS AT ALL,SAFETY MEASURE IN PLACE,CALL LIGHT WITHIN REACH,WILL ENDORSED TO NEXT SHIFT..
[2022-12-03 06:49] LABS: CALCIUM, SERUM 8.5 mg/dL (8.5-10.1); CREATININE 1.1 mg/dL (0.6-1.3); MAGNESIUM 1.9 mg/dL (1.8-2.4); PHOSPHORUS 2.7 mg/dL (2.5-4.9); POTASSIUM 3.5 mmol/L (3.5-5.1)
[2022-12-03 08:00] VITALS: BP 135/66
[2022-12-03] MEDS: LOSARTAN POTASSIUM 50 MG TABLET PO SCH (09:00)
[2022-12-03] MEDS: PANTOPRAZOLE 40 MG VIAL IV SCH (09:00)
[2022-12-03] MEDS: METOPROLOL SUCCINATE 25 MG TAB.SR.24H PO SCH (09:00)
[2022-12-03] MEDS: AMLODIPINE BESYLATE 10 MG TABLET PO SCH (09:00)
[2022-12-03] MEDS ORDERED: POLYMYXIN B SULFATE 500,000 UNITS ONE (09:02)
[2022-12-03] MEDS ORDERED: TRANEXAMIC ACID 1,000 MG/10 ML VIAL ONE (09:03)
[2022-12-03] MEDS ORDERED: BUPIVACAINE 0.25% 75 MG/30 ML VIAL ONE (09:03)
[2022-12-03] MEDS ORDERED: FENTANYL PF 100MCG/2ML AMPUL ONE ×2 (09:18→11:37)
[2022-12-03 09:41] VITALS: BP 135/66
[2022-12-03] MEDS ORDERED: LABETALOL HCL IV 100MG VIAL ONE (10:07)
[2022-12-03] MEDS ORDERED: ONDANSETRON HCL/PF 4 MG/2 ML VIAL ONE (11:08)
[2022-12-03] MEDS ORDERED: EPHEDRINE SULFATE IV 50MG VIAL ONE (11:09)
[2022-12-03] MEDS ORDERED: METOCLOPRAMIDE HCL 10 MG/2 ML VIAL ONE (11:39)
[2022-12-03 12:00] VITALS: BP 124/57
[2022-12-03] MEDS ORDERED: HYDROCODONE/APAP 5/325MG TABLET PO PRN (12:30)
[2022-12-03] MEDS ORDERED: ACETAMINOPHEN 325 MG TABLET PO PRN (12:30)
[2022-12-03] MEDS: ENOXAPARIN SODIUM 40 MG/0.4 ML DISP.SYRIN SQ SCH (13:42)
[2022-12-03] MEDS: ANCEF 1 GM/50 ML D5W IV SCH ×2 (16:03)
[2022-12-03 16:48] VITALS: BP 125/61
--- NOTE | 2022-12-03 19:37 | NUR ---
RN OPENING NOTES; RECEIVED PT AWAKED AOX4,ABLE TO MAKE NEEDS KNOWN,THADDEUS WELL RA SATING 98%,NO SIGN SOB/DISTRESS NOTED,BREATHING EVEN AND UNLABORED,IV ACCESS LFA 20G WITH D5 1/2NS 50ML/HR INFUSING WELL,SP LEFT HIP HEMIARTHROPLASTY,DRESSING INTACT NO BLEEDING OR UNUSUAL DISCHARGE NOTED,NO COMPLAIN OF PAIN AT THIS TIME,SAFETY MEASURE IN PLACE,CALL LIGHT WITHIN REACH,WILL CONTINUE TO MONITOR.
[2022-12-03 20:00] VITALS: BP 135/59
[2022-12-04] MEDS: CEFTRIAXONE 1 G in IV D5W 50 ML IV SCH (00:05)
[2022-12-04] MEDS: ANCEF 1 GM/50 ML D5W IV SCH ×2 (00:06)
[2022-12-04] MEDS: IV D5/0.45 NACL 1,000 ML IV PRN (02:00)
--- NOTE | 2022-12-04 06:25 | NUR ---
RN CLOSING NOTES; PT AWAKED AOX4,ABLE TO MAKE NEEDS KNOWN,THADDEUS WELL RA SATING 98%,NO SIGN SOB/DISTRESS NOTED,BREATHING EVEN AND UNLABORED,IV ACCESS LFA 20G WITH D5 1/2NS 50ML/HR INFUSING WELL,SP LEFT HIP HEMIARTHROPLASTY,DRESSING INTACT NO BLEEDING OR UNUSUAL DISCHARGE NOTED,PT COMPLAINED OF PAIN ON SITE BUT REFUSED TO HAVE PAIN MEDS, SAFETY MEASURE IN PLACE,CALL LIGHT WITHIN REACH,WILL ENDORSED TO NEXT SHIFT.
[2022-12-04 06:58] LABS: BASOPHILS % (AUTO) 0.2 % (0.0-2.0); EOSINOPHILS % (AUTO) 0.3 % (0.0-6.0); HEMATOCRIT 23 % (33-45); HEMOGLOBIN 7.6 g/dL (11.5-14.8); LYMPHOCYTES # (AUTO) 0.8 K/uL (0.8-4.8); LYMPHOCYTES % (AUTO) 11.3 % (20.0-44.0); MEAN CORPUSCULAR HGB CONC 33 g/dl (31.0-36.0); MEAN CORPUSCULAR VOLUME 89 fL (82-100); MONOCYTES # (AUTO) 0.7 K/uL (0.1-1.30); MONOCYTES % (AUTO) 10.1 % (2.0-12.0); NEUTROPHILS # (AUTO) 5.4 K/uL (1.8-8.9); NEUTROPHILS % (AUTO) 78.1 % (43.0-81.0); PLATELET COUNT (AUTO) 127 K/uL (150-450); RED BLOOD CELL COUNT(AUTO) 2.59 MIL/uL (4.0-5.2); WHITE BLOOD COUNT (AUTO) 6.9 K/uL (4.3-11.0)
[2022-12-04 07:22] LABS: CALCIUM, SERUM 8.2 mg/dL (8.5-10.1); CARBON DIOXIDE 26 mmol/L (21-32); CHLORIDE 107 mmol/L (98-107); CREATININE 1.3 mg/dL (0.6-1.3); GLUCOSE 147 mg/dL (74-106); MAGNESIUM 1.9 mg/dL (1.8-2.4); PHOSPHORUS 3.1 mg/dL (2.5-4.9); POTASSIUM 4.4 mmol/L (3.5-5.1); SODIUM SERUM 140 mmol/L (136-145); UREA NITROGEN, BLOOD 25 mg/dL (7-18)
[2022-12-04] MEDS: PANTOPRAZOLE 40 MG TABLET.DR PO SCH (07:30)
--- NOTE | 2022-12-04 07:55 | NUR ---
RN OPENING NOTE RECEIVED PT AWAKED AOX4, ABLE TO MAKE NEEDS KNOWN, BREATHING ON RA, EVEN AND NON LABORED,NO SIGN SOB/DISTRESS NOTED, IV ACCESS LFA 20G WITH D5 1/2NS 50ML/HR INFUSING WELL. SP LEFT HIP HEMIARTHROPLASTY,DRESSING INTACT NO BLEEDING OR UNUSUAL DISCHARGE NOTED,NO COMPLAIN OF PAIN AT THIS TIME. SAFETY MEASURES IN PLACE. BED IN LOW AND LOCKED POSITION, SIDE RAILS UP X2, CALL LIGHT PLACE WITHIN EASY REACH. WILL CONTINUE TO MONITOR PATIENT.
[2022-12-04] MEDS: METOPROLOL SUCCINATE 25 MG TAB.SR.24H PO SCH (09:00)
[2022-12-04] MEDS: AMLODIPINE BESYLATE 10 MG TABLET PO SCH (09:00)
[2022-12-04] MEDS: LOSARTAN POTASSIUM 50 MG TABLET PO SCH (09:00)
--- NOTE | 2022-12-04 09:50 | NUR ---
RN NOTE PT REFUSED ALL MORNING MEDS. STATED IT WILL GIVE HER STOMACH PAIN. EDUCATED PATIENT ABOUT THE RISKS AND BENEFITS. SHE HAS BP MEDS, HER BP 177/86, P 72. STILL REFUSING, WILL CONTINUE TO MONITOR.
[2022-12-04] MEDS: ONDANSETRON HCL/PF 4 MG/2 ML VIAL IVP PRN ×2 (11:06→17:17)
[2022-12-04] MEDS: MORPHINE SULFATE INJ 4 MG/ML DISP.SYRIN IV PRN ×2 (11:13→16:43)
[2022-12-04] MEDS: ENOXAPARIN SODIUM 40 MG/0.4 ML DISP.SYRIN SQ SCH (11:52)
[2022-12-04] MEDS: ENSURE ENLIVE CHOC 237 ML CAN PO SCH ×2 (11:52→16:42)
--- NOTE | 2022-12-04 18:38 | NUR ---
RN CLOSING NOTE PT AWAKE IN BED AOX4. ABLE TO MAKE NEEDS KNOWN. PT ON RA, NO SIGN SOB/DISTRESS NOTED,BREATHING EVEN AND UNLABORED. IV ACCESS LFA 20G FLUSHING WELL, SL. SP LEFT HIP HEMIARTHROPLASTY,DRESSING INTACT NO BLEEDING OR UNUSUAL DISCHARGE NOTED. FALL AND SAFETY MEASURES IN PLACE, BED ALARM ON, BED IN LOW AND LOCK POSITION, CALL LIGHT AND TABLE WITHIN EASY REACH, SIDE RAILS UP X3. ALL NEEDS ATTENDED AND ANTICIPATED. WILL ENDORSE TO THREAD DRAWER FOR ELENO.
--- NOTE | 2022-12-04 19:46 | NUR ---
RN OPENING NOTE PT AWAKE IN BED AOX4 ABLE TO MAKE NEEDS KNOWN. PT ON RA, NO SIGN SOB/DISTRESS NOTED,BREATHING EVEN AND UNLABORED. IV ACCESS LFA 20G FLUSHING WELL, SL. L HIP SURGICAL SITE DRESSING INTACT. FALL AND SAFETY MEASURES IN PLACE, BED ALARM ON, BED IN LOW AND LOCK POSITION, CALL LIGHT AND TABLE WITHIN EASY REACH, SIDE RAILS UP X3. ALL NEEDS ATTENDED AND ANTICIPATED.
[2022-12-04 20:00] VITALS: BP 164/73
[2022-12-05] VITALS (8 sets, daily range): BP systolic 120–161; BP diastolic 54–84
[2022-12-05] MEDS: CEFTRIAXONE 1 G in IV D5W 50 ML IV SCH (00:07)
--- NOTE | 2022-12-05 05:15 | NUR ---
RN NOTE PT REFUSED TO BE CLEANED OR HAVE BED MADE. ASKED PT IF IT WAS BECAUSE SHE WAS AFRAID OF THE PAIN WE WOULD BE VERY GENTLE AND COULD PROVIDE PAIN MEDICATION TO MAKE IT EASIER PT STATED' I DON'T WANT ANYMORE MEDICATIONS OF ANY KIND I DON'T WANT MY BED MADE I JUST WANT TO BE LEFT ALONE SO I CAN CONTINUE RESTING"' RISK AND BENEFITS EXPLAINED X3 REFUSED X3.
--- NOTE | 2022-12-05 06:32 | NUR ---
RN CLOSING NOTE PT AWAKE IN BED AOX4 ABLE TO MAKE NEEDS KNOWN. PT ON RA, NO SIGN SOB/DISTRESS NOTED,BREATHING EVEN AND UNLABORED. IV ACCESS LFA 20G FLUSHING WELL, SL. L HIP SURGICAL SITE DRESSING INTACT. FALL AND SAFETY MEASURES IN PLACE, BED ALARM ON, BED IN LOW AND LOCK POSITION, CALL LIGHT AND TABLE WITHIN EASY REACH, SIDE RAILS UP X3. ALL NEEDS ATTENDED AND ANTICIPATED. WILL ENDORSE CARE TO DAY SHIFT NURSE,
[2022-12-05 07:19] LABS: BASOPHILS % (AUTO) 0.3 % (0.0-2.0); CALCIUM, SERUM 8.5 mg/dL (8.5-10.1); CARBON DIOXIDE 28 mmol/L (21-32); CHLORIDE 104 mmol/L (98-107); CREATININE 1.2 mg/dL (0.6-1.3); EOSINOPHILS % (AUTO) 0.9 % (0.0-6.0); GLUCOSE 106 mg/dL (74-106); HEMATOCRIT 23 % (33-45); HEMOGLOBIN 7.4 g/dL (11.5-14.8); LYMPHOCYTES # (AUTO) 0.9 K/uL (0.8-4.8); LYMPHOCYTES % (AUTO) 12.6 % (20.0-44.0); MEAN CORPUSCULAR HGB CONC 33 g/dl (31.0-36.0); MEAN CORPUSCULAR VOLUME 89 fL (82-100); MONOCYTES # (AUTO) 0.6 K/uL (0.1-1.30); MONOCYTES % (AUTO) 9.2 % (2.0-12.0); NEUTROPHILS # (AUTO) 5.4 K/uL (1.8-8.9); PLATELET COUNT (AUTO) 147 K/uL (150-450); POTASSIUM 4.7 mmol/L (3.5-5.1); RED BLOOD CELL COUNT(AUTO) 2.52 MIL/uL (4.0-5.2); SODIUM SERUM 138 mmol/L (136-145); UREA NITROGEN, BLOOD 24 mg/dL (7-18); WHITE BLOOD COUNT (AUTO) 6.9 K/uL (4.3-11.0)
--- NOTE | 2022-12-05 07:31 | NUR ---
MS RN OPENING NOTE RECEIVED PATIENT AWAKE IN BED. A/O X 4, ABLE TO MAKE NEEDS KNOWN. NO C/O PAIN/DISCOMFORT AT THIS TIME. STABLE ON ROOM AIR, NO SIGN OF ACUTE RESPIRATORY DISTRESS NOTED. WITH IV ACCESS ON LFA #20G, SL, C/D/I. WITH MCKEON DRAINING VIA GRAVITY WITH YELLOW URINE. SAFETY MEASURES IN PLACE: BED IN LOWEST AND LOCKED POSITION, SIDE RAILS UP X2, TRAY TABLE AND CALL LIGHT WITHIN EASY REACH. WILL CONTINUE TO MONITOR.
[2022-12-05] MEDS: ENSURE ENLIVE CHOC 237 ML CAN PO SCH ×3 (08:00→17:13)
[2022-12-05] MEDS: AMLODIPINE BESYLATE 10 MG TABLET PO SCH ×2 (09:00→09:20)
[2022-12-05] MEDS: LOSARTAN POTASSIUM 50 MG TABLET PO SCH ×2 (09:00→09:20)
[2022-12-05] MEDS: METOPROLOL SUCCINATE 25 MG TAB.SR.24H PO SCH ×2 (09:00→09:20)
[2022-12-05] MEDS: PANTOPRAZOLE 40 MG TABLET.DR PO SCH (09:09)
[2022-12-05] MEDS: ONDANSETRON HCL/PF 4 MG/2 ML VIAL IVP PRN (09:37)
[2022-12-05 10:29] LABS: PHOSPHORUS 3.4 mg/dL (2.5-4.9)
[2022-12-05 10:30] LABS: IRON, SERUM 10 ug/dl (50-175); TOTAL IRON BINDING CAPACITY 151 ug/dl (250-450)
[2022-12-05 11:27] LABS: FERRITIN 524 ng/mL (8-388)
[2022-12-05] MEDS: ENOXAPARIN SODIUM 40 MG/0.4 ML DISP.SYRIN SQ SCH (12:30)
[2022-12-05] MEDS ORDERED: ONDANSETRON HCL/PF 4 MG/2 ML VIAL IV ONE (13:30)
--- NOTE | 2022-12-05 17:45 | NUR ---
RN NOTES INITIATED BLOOD TRANSFUSION OF PRBC X 1 UNIT AT 1745VIA IV ACCESS ON RFA #20G. V/S MONITORED, STABLE AND RECORDED. WILL MONITOR FOR ELDER ADVERSE/ALLERGIC REACTION.
--- NOTE | 2022-12-05 18:10 | NUR ---
RN NOTES NO ADVERSE/ALLERGIC REACTIONS, SUCH FEVER, RASH, SOB ETC AFTER 15 MINUTES OF STARTING BLOOD TRANSFUSION. V/S CHECKED AND RECORDED. WILL CONTINUE TO MONITOR.
--- NOTE | 2022-12-05 18:38 | NUR ---
MS RN CLOSING NOTE PATIENT RESTING IN BED. A/O X 4, ABLE TO MAKE NEEDS KNOWN. NO C/O PAIN/DISCOMFORT AT THIS TIME. ON ROOM AIR, TOLERATED WELL. WITH IV ACCESS ON RFA #20G, WITH ONGOING BT OF PRBC, INFUSING WELL, NO ADVERSE REACTIONS NOTED. WITH MCKEON DRAINING VIA GRAVITY WITH YELLOW URINE. NEEDS ATTENDED. SAFETY MEASURES IN PLACE: BED IN LOWEST AND LOCKED POSITION, SIDE RAILS UP X2, TRAY TABLE AND CALL LIGHT WITHIN EASY REACH. WILL ENDORSE ELENO TO MILLINERY TEACHER. Addendum: 12/05/22 at 2003 by Chelsea Ruffin RN PT REFUSED TO BE REPOSITIONED.
--- NOTE | 2022-12-05 20:50 | NUR ---
MS PLASTIC OUTFITTER NOTE PATIENT VS STABLE AT THIS TIME. A/O X 4, ABLE TO MAKE NEEDS KNOWN. NO C/O PAIN/DISCOMFORT AT THIS TIME. STABLE ON ROOM AIR, TOLERATED WELL. GAVE REPORT TO GULSHAN GRIMM FROM [facility]. IV ACCESS ON RFA #20G AND MCKEON CATHETER ASKED TO BE KEPT IN PLACE BY GULSHAN GRIMM. BELONGINGS DOCUMENTED AND SIGNED BY PATIENT. CHART WITH PT. MADE REPORT AND RECEIVED BY EMT TO BE TRANSPORTED.
== END 2022-12-05 21:00 | DRG 522 ==
LOC: ER 19:35 → MED 23:40
PROVIDERS: ADMIT Registered Nurse; ATTEND Nurse Practitioner Acute Care
PROC: 0SRS0JZ Replacement of Left Hip Joint, Femoral Surface with Synthetic Substitute, Open Approach (ICD-10-PCS; principal; 2022-12-03)
PROC: 30233N1 Transfusion of Nonautologous Red Blood Cells into Peripheral Vein, Percutaneous Approach (ICD-10-PCS; 2022-12-05)
DX: S72.002A Fracture of unspecified part of neck of left femur, initial encounter for closed fracture (principal); N39.0 Urinary tract infection, site not specified; D62 Acute posthemorrhagic anemia; W01.0XXA Fall on same level from slipping, tripping and stumbling without subsequent striking against object, initial encounter; Y92.9 Unspecified place or not applicable; Z96.641 Presence of right artificial hip joint; Z95.0 Presence of cardiac pacemaker; I10 Essential (primary) hypertension; E86.1 Hypovolemia; Z79.01 Long term (current) use of anticoagulants; Z79.899 Other long term (current) drug therapy; R79.89 Other specified abnormal findings of blood chemistry; D50.9 Iron deficiency anemia, unspecified
CPT/HCPCS: 36415; 71045-TC; 72192-TC; 73502; 80048-TC; 80076-TC; 81001; 82728-TC; 83540-TC; 83735-TC; 84100-TC; 84443-TC; 85025-TC; 85610-TC; 86850-TC; 87081-TC; 88305-TC; 88311-TC; 93307-TC; 97110-TC; 97116-TC; 97530-TC; A4217; A4223; A6209; C1776; C9113; C9803; G0378; J0360; J0461; J0690; J0696; J1100; J1650; J1885; J2270; J2405; J2704; J2765; J3010; J3490; J7040; J7050; J7060; P9016

== ENCOUNTER 2025-03-22 09:17 | Emergency (ER) | payer MEDICARE ==
[~2025-03-22] VITALS: Ht 152.4 cm; Wt 59.4 kg
[~2025-03-22 09:17] MED LIST changes: +AMIN30LI2 PO; +AMLO-213 PO; -AMLO10TA4 PO; -CEPH-569 PO; +DOCU-141 PO; -ENOX30DI SQ; +FERR325T6 PO; -HYDR-3972 PO; -HYDR-4075 PO; -LOSA100T31 PO; +MULT-447 PO; +PANT40TA49 PO; +RIVA10TA PO
[2025-03-22] MEDS ORDERED: ACETAMINOPHEN ES 500 MG TABLET ONE (09:42)
[2025-03-22] MEDS: ACETAMINOPHEN ES 500 MG TABLET PO ONE (09:45)
[2025-03-22 11:03] VITALS: BP 162/68; TEMP 98.7; O2SAT 99
== END 2025-03-22 11:04 | disposition home or self-care (01) ==
LOC: ER 09:20
DX: S86.812A Strain of other muscle(s) and tendon(s) at lower leg level, left leg, initial encounter (principal); S86.811A Strain of other muscle(s) and tendon(s) at lower leg level, right leg, initial encounter; I10 Essential (primary) hypertension; E78.5 Hyperlipidemia, unspecified; M17.0 Bilateral primary osteoarthritis of knee; Z79.01 Long term (current) use of anticoagulants; Z79.899 Other long term (current) drug therapy; Z95.0 Presence of cardiac pacemaker; Z96.641 Presence of right artificial hip joint
CPT/HCPCS: 73564-TC